=== PATIENT | female | born 1985 | race Two or more races ===

== ENCOUNTER 2019-03-05 06:00 | Inpatient (IN) | payer OTHER ==
[2019-03-05] MEDS ORDERED: METHYLERGONOVINE 0.2 MG INJ IM ×2 (07:00→12:00)
[2019-03-05] MEDS ORDERED: OXYTOCIN 30 UNITS/LR 500 ML IV ×2 (07:00→12:00)
[2019-03-05] MEDS ORDERED: CARBOPROST 250 MCG INJ IM ×2 (07:00→12:00)
[2019-03-05] MEDS ORDERED: MISOPROSTOL 200 MCG TAB PR ×2 (07:00→12:00)
[2019-03-05] MEDS ORDERED: LIDOCAINE 1% (MPF) 30 ML INJ INJ (07:00)
[2019-03-05] MEDS: AMPICILLIN 2 GM/NS (PMX) 100 ML IV (07:05)
[2019-03-05] MEDS: LACTATED RINGER'S 1,000 ML IV ×2 (07:05→08:03)
[2019-03-05 07:23] LABS: ADD MAN DIFF? NO
[2019-03-05 07:28] LABS: BASOPHIL # 0.1 10^3/ul (0.0-0.1); BASOPHILS % 0.8 % (0.0-2.0); EOSINOPHILS # 0.1 10^3/ul (0.0-0.5); EOSINOPHILS % 0.8 % (0.0-7.0); HEMATOCRIT 33.1 % (37.0-47.0); HEMOGLOBIN 10.2 g/dl (12.0-16.0); LYMPHOCYTES # 1.9 10^3/ul (0.8-2.9); LYMPHOCYTES % 26.2 % (15.0-51.0); MEAN CORPUSCULAR HEMOGLOBIN 24.1 pg (29.0-33.0); MEAN CORPUSCULAR HGB CONC 30.8 g/dl (32.0-37.0); MEAN CORPUSCULAR VOLUME 78.3 fl (82.0-101.0); MEAN PLATELET VOLUME 12.9 fl (7.4-10.4); MONOCYTE # 0.8 10^3/ul (0.3-0.9); MONOCYTES % 11.2 % (0.0-11.0); NEUTROPHIL # 4.5 10^3/ul (1.6-7.5); NEUTROPHILS % 60.6 % (39.0-77.0); PLATELET COUNT 223 10^3/UL (140-415); RED BLOOD COUNT 4.23 10^6/ul (4.20-5.40); RED CELL DISTRIBUTION WIDTH 16.1 % (11.5-14.5)
[2019-03-05 07:28] LABS: WHITE BLOOD COUNT 7.4 10^3/ul (4.8-10.8)
[2019-03-05] MEDS ORDERED: FENTAnyl 2MCG/ML-ROPIV 0.2% 100 ML (07:44)
[2019-03-05 07:47] LABS: INR 0.87; PROTIME 11.9 Sec (11.9-14.9); PT RATIO 0.9
[2019-03-05 07:48] LABS: PARTIAL THROMBOPLASTIN TIME 27.3 Sec (23.0-35.0)
[2019-03-05 07:49] LABS: GLUCOSE 98 mg/dl (70-220)
[2019-03-05] MEDS ORDERED: ONDANSETRON 4 MG INJ IV ×2 (08:00→12:00)
[2019-03-05] MEDS ORDERED: NALOXONE (0.4 MG/ML) INJ IV (08:00)
[2019-03-05] MEDS ORDERED: FENTAnyl 2MCG/ML-ROPIV 0.2% 100 ML BAG EPI (08:00)
[2019-03-05 08:22] LABS: HEPATITIS B SURFACE ANTIGEN NEGATIVE (NEGATIVE)
[2019-03-05 08:40] LABS: AMPHETAMINE/METHAMPHETAMINE Negative (NEGATIVE); BARBITURATES Negative (NEGATIVE); BENZODIAZEPINES Negative (NEGATIVE); CANNABINOIDS Negative (NEGATIVE); COCAINE Negative (NEGATIVE); OPIATES Negative (NEGATIVE)
[2019-03-05] MEDS: AMPICILLIN 1 GM/NS (PMX) 50 ML IV (10:36)
[2019-03-05] MEDS: OXYTOCIN 30 UNITS/LR 500 ML IV ×3 (11:48→13:26)
[2019-03-05] MEDS ORDERED: ACETAMINOPHEN 325 MG TAB PO ×2 (12:00)
[2019-03-05] MEDS ORDERED: DIBUCAINE 1% 30 GM OINT TOP (12:00)
[2019-03-05] MEDS: LACTATED RINGER'S 1,000 ML IV* (13:26)
[2019-03-05] MEDS: IBUPROFEN 600 MG TAB PO ×2 (14:38→20:09)
[2019-03-05] MEDS: WITCH HAZEL/GLYCERIN PAD PR (14:38)
[2019-03-05] MEDS: BENZOCAINE 20% 56 ML SPRAY TOP (14:38)
[2019-03-05 16:25] LABS: RAPID PLASMA REAGIN NONREACTIVE (NR)
[2019-03-06] MEDS: IBUPROFEN 600 MG TAB PO ×2 (06:19→13:53)
[2019-03-06] MEDS: LANOLIN HPA 1 PKT TOP (06:19)
[2019-03-06 06:51] LABS: ADD MAN DIFF? NO
[2019-03-06 06:55] LABS: BASOPHIL # 0.1 10^3/ul (0.0-0.1); BASOPHILS % 0.5 % (0.0-2.0); EOSINOPHILS # 0.1 10^3/ul (0.0-0.5); EOSINOPHILS % 0.5 % (0.0-7.0); HEMOGLOBIN 7.7 g/dl (12.0-16.0); LYMPHOCYTES # 1.7 10^3/ul (0.8-2.9); LYMPHOCYTES % 18.2 % (15.0-51.0); MEAN CORPUSCULAR HGB CONC 30.8 g/dl (32.0-37.0); MEAN CORPUSCULAR VOLUME 77.9 fl (82.0-101.0); MEAN PLATELET VOLUME 12.1 fl (7.4-10.4); MONOCYTE # 0.8 10^3/ul (0.3-0.9); MONOCYTES % 8.9 % (0.0-11.0); NEUTROPHIL # 6.6 10^3/ul (1.6-7.5); NEUTROPHILS % 71.4 % (39.0-77.0); PLATELET COUNT 173 10^3/UL (140-415); RED BLOOD COUNT 3.21 10^6/ul (4.20-5.40); RED CELL DISTRIBUTION WIDTH 15.9 % (11.5-14.5)
[2019-03-06 06:55] LABS: WHITE BLOOD COUNT 9.2 10^3/ul (4.8-10.8)
[2019-03-06] MEDS: SENNA/DOCUSATE NA (8.6MG/50MG) TAB PO (09:43)
[2019-03-06] MEDS: MAGNESIUM HYDROXIDE 30ML CUP PO (17:37)
[2019-03-07] MEDS: SENNA/DOCUSATE NA (8.6MG/50MG) TAB PO (00:09)
[2019-03-07] MEDS: IBUPROFEN 600 MG TAB PO ×2 (00:09→09:07)
[2019-03-07] MEDS: LANOLIN HPA 1 PKT TOP (00:16)
[2019-03-07] MEDS: MAGNESIUM HYDROXIDE 30ML CUP PO (09:09)
[2019-03-07 12:46] LABS: RUBELLA ANTIBODY - IGM <20.00 AU/mL
[2019-03-07 22:12] LABS: RUBELLA ANTIBODY - IGG 1.34 index
== END 2019-03-07 16:30 | disposition home or self-care (01) | DRG 807 ==
LOC: OBT 06:00 → L-D 06:00 → OBT 06:45 → L-D 06:45 → PP1 13:14
PROC: 10E0XZZ Delivery of Products of Conception, External Approach (ICD-10-PCS; principal; 2019-03-05)
PROC: 0HQ9XZZ Repair Perineum Skin, External Approach (ICD-10-PCS; 2019-03-05)
DX: O24.420 Gestational diabetes mellitus in childbirth, diet controlled (principal); Z37.0 Single live birth; O70.0 First degree perineal laceration during delivery; Z3A.39 39 weeks gestation of pregnancy
CPT/HCPCS: 62322; 80307; 82947; 82962; 85025; 85610; 85730; 86592; 86762; 86850; 86900; 86901; 87340